=== PATIENT | female | born 2000 | race Caucasian/White ===

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

== ENCOUNTER 2024-02-24 19:35 | Emergency (ER) | payer SELFPAY | END 2024-02-24 20:54 | disposition left against medical advice (07) | LOC: ED 19:35 | DX: R55 Syncope and collapse (principal); Z53.21 Procedure and treatment not carried out due to patient leaving prior to being seen by health care provider ==